=== PATIENT | male | born 1980 | race Caucasian/White ===

== ENCOUNTER 2022-10-18 14:56 | Inpatient (IN) | payer MEDICAID ==
[~2022-10-18] VITALS: Ht 182.9 cm; Wt 136.5 kg
[2022-10-18] MEDS ORDERED: ondansetron/PF 4mg/2ml inj IV ONE (15:25)
[2022-10-18] MEDS ORDERED: piperacillin/tazo 3.375gm/50ml 50 ML IV ONE (15:25)
[2022-10-18 16:05] LABS: BASOPHILS % (AUTO) 0.2 % (0-1); EOSINOPHILS # (AUTO) 0.1 X10'3 (0-0.9); EOSINOPHILS % (AUTO) 1.4 % (0-6); HEMATOCRIT 47.7 % (42.0-52.0); LYMPHOCYTES # (AUTO) 1.5 X10'3 (1.1-4.8); LYMPHOCYTES % (AUTO) 16.7 % (21-51); MEAN CORPUSCULAR HEMOGLOBIN 29.4 PG (27.0-31.0); MEAN CORPUSCULAR HGB CONC 33.6 g/dL (33.0-36.5); MEAN CORPUSCULAR VOLUME 87.7 FL (78-98); MEAN PLATELET VOLUME 8.3 FL (7.4-10.4); MONOCYTES # (AUTO) 1.2 X10'3 (0-0.9); NEUTROPHILS # (AUTO) 6.1 X10'3 (1.8-7.7); NEUTROPHILS % (AUTO) 68.7 % (42-75); PLATELET COUNT 334 X10'3 (140-440); RED BLOOD COUNT 5.44 X10'6 (4.70-6.10); RED CELL DISTRIBUTION WIDTH 15.1 % (11.5-14.5); WHITE BLOOD COUNT 8.9 X10'3 (4.5-11.0)
[2022-10-18] MEDS: morphine 4 MG/ML inj SYRINge IV PRN ×2 (16:16→19:05)
[2022-10-18] MEDS: ringers solution, lacted 1,000 ML IV SCH ×2 (16:47→22:20)
[2022-10-18 17:02] LABS: ALANINE AMINOTRANSFERASE 24 U/L (12-78); ALBUMIN 3.6 G/DL (3.4-5.0); ALBUMIN/GLOBULIN RATIO 0.9 (1.1-1.5); ALKALINE PHOSPHATASE 90 IU/L (46-116); ANION GAP 10 (8-16); ASPARTATE AMINO TRANSFERASE 24 U/L (10-37); BILIRUBIN,TOTAL 1.5 MG/DL (0.1-1.0); BLOOD UREA NITROGEN 14 MG/DL (7-18); BUN/CREATININE RATIO 13.6 (5.4-32.0); CALCIUM 9.3 MG/DL (8.5-10.1); CHLORIDE 101 MMOL/L (99-107); CREATININE 1.03 MG/DL (0.60-1.10); GLUCOSE 108 MG/DL (70-104); LIPASE 56 U/L (73-393); SODIUM 136 MMOL/L (135-145); TOTAL CARBON DIOXIDE 25.1 MMOL/L (24-32); TOTAL PROTEIN 7.4 G/DL (6.4-8.2); eGFR 79 ML/MIN
[2022-10-18 17:10] LABS: POTASSIUM 4.5 MMOL/L (3.5-5.1)
[2022-10-18] MEDS ORDERED: mag hydrox/Alum hydrox/simeth 30ml oral suspension PO PRN (17:30)
[2022-10-18] MEDS ORDERED: magnesium Cl slow-release 64mg tablet PO PRN (17:30)
[2022-10-18] MEDS ORDERED: potassium Cl 20 mEq SR tablet PO PRN ×2 (17:30)
[2022-10-18] MEDS ORDERED: PERFLUTREN PROTEIN-A MICROSPHR (Optison) 0.22 MG/ML 3ML VIAL IV ONE (17:30)
[2022-10-18] MEDS ORDERED: potassium Cl 40MEQ/1/2NS 520ml 520 ML IV PRN (17:30)
[2022-10-18] MEDS ORDERED: HYDROmorphone inj. 0.5 MG/0.5 ML DISP.SYRIN IV PRN (17:30)
[2022-10-18] MEDS ORDERED: acetaminophen 325mg tablet PO PRN (17:30)
[2022-10-18] MEDS ORDERED: magnesium 4gm in 100ml NS 100 ML IV PRN (17:30)
[2022-10-18] MEDS ORDERED: HYDROmorphone/PF 0.2 MG/ML SYRINGE IV PRN (17:30)
[2022-10-18] MEDS: normal saline 1000ml 1,000 ML IV SCH (17:44)
[2022-10-18] MEDS: ondansetron/PF 4mg/2ml inj IV PRN (18:45)
[2022-10-18] MEDS ORDERED: LOSA25TA41 PO (19:22)
[2022-10-18] MEDS ORDERED: POTA10CA45 PO (19:22)
[2022-10-18] MEDS ORDERED: NAPR-1144 PO (19:22)
[2022-10-18] MEDS ORDERED: CARV3.122 PO (19:22)
[2022-10-18] MEDS ORDERED: FURO40TA4 PO (19:22)
[2022-10-18] MEDS: K and/or MAG REPLACEMENT MC SCH (20:00)
[2022-10-18] MEDS ORDERED: midazolam 100mg in NS 100ml 100 ML IV PRN (20:15)
[2022-10-18] MEDS ORDERED: ondansetron/PF 4mg/2ml inj IV PRN (20:15)
[2022-10-18] MEDS ORDERED: ringers solution, lacted 1,000 ML IV SCH (20:15)
[2022-10-18] MEDS: NORepinephrine 8mg/ 250ml NS 250 ML IV SCH (20:15)
[2022-10-18 20:33] VITALS: BP 118/98
[2022-10-18] MEDS ORDERED: NORepinephrine 8 MG in NS 250 ML BAG (32 mcg/ml) IV ONE (21:17)
[2022-10-18] MEDS ORDERED: sevoflurane 250ml liquid IH ONE (21:17)
--- NOTE | 2022-10-18 21:19 | NUR ---
Pt came in from ED, Dr Naik instructed me and charge nurse that he was going to take patient to OR in 20 minutes, pt left floor at [id number]
[2022-10-18] MEDS ORDERED: MIDAZolam 1mg/ml 10ml vial ONE (21:28)
[2022-10-18] MEDS ORDERED: fentaNYL /PF 50mcg/ml 5ml ampule ONE (21:31)
[2022-10-18] MEDS ORDERED: etomidate 2mg/ml inj. ONE (22:13)
[2022-10-18] MEDS ORDERED: rocuronium 10mg/ml inj IV ONE ×3 (22:13)
[2022-10-18] MEDS ORDERED: albumin (Human) 5% 250ml 250 ML IV ONE ×2 (22:13)
[2022-10-18] MEDS ORDERED: naloxone 0.4 mg/ml inj IV PRN (23:50)
[2022-10-18 23:59] VITALS: BP 133/77
[2022-10-19] VITALS (41 sets, daily range): BP systolic 90–166; BP diastolic 46–95
[2022-10-19] MEDS: FENTANYL-0.9 % NACL/PF 100 ML IV SCH ×4 (00:09→22:05)
[2022-10-19 00:16] LABS: ABG BASE EXCESS -3.5 mmol/L (-2.0-2.0); ABG HCO3 22.7 mmol/L (22.0-26.0); ABG OXYGEN SATURATION 98.9 % (94-97); ABG PCO2 (T) 46.7 mmHg (35.0-48.0); ABG PO2 (T) 149.3 mmHg (75.0-100.0); FMetHb 0.6 % (0.0-1.5); FO2Hb 97.3 % (94-97); PEEP 5 cm H2O; RESPIRATORY RATE 12 b/min; TIDAL VOLUME 700 mL; TOTAL HEMOGLOBIN 16.8 G/dl (14.0-17.9)
[2022-10-19] MEDS: ringers solution, lacted 1,000 ML IV SCH ×3 (00:40→11:40)
[2022-10-19] MEDS ORDERED: magnesium 2GM in 50ml NS 50 ML IV PRN (02:15)
[2022-10-19] MEDS ORDERED: magnesium 4gm in 100ml NS 100 ML IV PRN (02:15)
[2022-10-19] MEDS ORDERED: potassium Cl 20mEq/100mL bag 100 ML IV PRN (02:15)
[2022-10-19 03:18] LABS: BASOPHILS % (AUTO) 0.2 % (0-1); EOSINOPHILS % (AUTO) 0.1 % (0-6); HEMATOCRIT 45.4 % (42.0-52.0); HEMOGLOBIN 15.3 g/dl (14.0-17.9); LYMPHOCYTES # (AUTO) 0.3 X10'3 (1.1-4.8); MEAN CORPUSCULAR HEMOGLOBIN 29.7 PG (27.0-31.0); MEAN CORPUSCULAR HGB CONC 33.8 g/dL (33.0-36.5); MEAN PLATELET VOLUME 8.1 FL (7.4-10.4); MONOCYTES # (AUTO) 0.2 X10'3 (0-0.9); MONOCYTES % (AUTO) 13.4 % (2-12); NEUTROPHILS # (AUTO) 1.2 X10'3 (1.8-7.7); NEUTROPHILS % (AUTO) 70.3 % (42-75); PLATELET COUNT 259 X10'3 (140-440); RED BLOOD COUNT 5.16 X10'6 (4.70-6.10); RED CELL DISTRIBUTION WIDTH 15.2 % (11.5-14.5); WHITE BLOOD COUNT 1.7 X10'3 (4.5-11.0)
[2022-10-19] MEDS: normal saline 1000ml 1,000 ML IV SCH ×3 (03:30→23:36)
[2022-10-19 03:32] LABS: ALANINE AMINOTRANSFERASE 19 U/L (12-78); ALBUMIN 2.9 G/DL (3.4-5.0); ALKALINE PHOSPHATASE 63 IU/L (46-116); ANION GAP 8 (8-16); ASPARTATE AMINO TRANSFERASE 20 U/L (10-37); BILIRUBIN,TOTAL 2.3 MG/DL (0.1-1.0); BLOOD UREA NITROGEN 17 MG/DL (7-18); BUN/CREATININE RATIO 15.3 (5.4-32.0); CALCIUM 8.1 MG/DL (8.5-10.1); CHLORIDE 106 MMOL/L (99-107); CREATININE 1.11 MG/DL (0.60-1.10); GLUCOSE 127 MG/DL (70-104); MAGNESIUM 1.6 MG/DL (1.5-2.4); SODIUM 138 MMOL/L (135-145); TOTAL CARBON DIOXIDE 23.9 MMOL/L (24-32); TOTAL PROTEIN 5.9 G/DL (6.4-8.2); eGFR 72 ML/MIN
[2022-10-19] MEDS: piperacillin/tazo 4.5gm/100ml 100 ML IV SCH ×5 (03:41→23:36)
[2022-10-19 04:08] LABS: PLATELET ESTIMATE NORMAL; TOTAL CELLS COUNTED 100
[2022-10-19] MEDS: NORepinephrine 8mg/ 250ml NS 250 ML IV SCH ×3 (06:31→17:42)
[2022-10-19] MEDS: K and/or MAG REPLACEMENT MC SCH ×2 (08:00→19:18)
[2022-10-19 08:18] LABS: CLARITY,URINE CLOUDY (Clear); COLOR,URINE ORANGE (Yellow); GLUCOSE, URINE NEGATIVE (Neg); KETONES,URINE TRACE mg/dl (Neg); LEUKOCYTE ESTERASE ,URINE NEGATIVE (Neg); OCCULT BLOOD,URINE TRACE-INTACT (Neg); PROTEIN,URINE 100 mg/dl (Neg)
[2022-10-19 08:39] LABS: UA COLLECTION TYPE FOLEY CATH
[2022-10-19 08:41] LABS: NITRITES, URINE NEGATIVE (Neg)
[2022-10-19 08:42] LABS: RBC,URINE 0-2 /HPF (0-2); WBC,URINE 0-4 /HPF (0-4)
[2022-10-19 08:43] LABS: AMORPHOUS URATES 4+; BACTERIA,URINE FEW /HPF (Neg); SQUAMOUS EPITHELIAL CELL,UR FEW /LPF (FEW)
[2022-10-19 08:44] LABS: TRANSITIONAL EPI CELLS,URINE FEW /HPF
[2022-10-19 08:59] LABS: URINE AMPHETAMINE SCREEN POSITIVE (Neg); URINE BARBITUATE SCREEN NEGATIVE (Neg); URINE BENZODIAZEPINES SCREEN POSITIVE (Neg); URINE CANNABINOID SCREEN POSITIVE (Neg); URINE COCAINE SCREEN NEGATIVE (Neg); URINE METHADONE SCREEN NEGATIVE (Neg); URINE OPIATE SCREEN POSITIVE (Neg); URINE PHENCYCLIDINE SCREEN NEGATIVE (Neg)
[2022-10-19] MEDS: propofol 1000mg/100ml bottle 100 ML IV SCH ×2 (10:20→19:28)
--- NOTE | 2022-10-19 10:30 | NUR ---
Dr. Iyer aware of decreased urine output. Continue normal saline at 100ml/h. Start Protonix IV.
[2022-10-19] MEDS: pantoprazole 40MG/NS 100ML BAG 100 ML IV SCH (10:32)
--- NOTE | 2022-10-19 12:05 | NUR ---
Initial: Pt admit for SBO with possible ischemic bowel and sepsis. Per surgeon note pt with SBO and peritonitis. Pt remains intubated POD #1 s/p exploratory laparotomy and removal of small bowel bezoar. Per RN pt possibly to go back to OR. An NGT is in place for LIS, documented with 100 mL output today. Propofol to begin today per MD at [facility]. Will continue to follow closely and make nutrition support recs as appropriate pending Propofol rate and desired route of nutrition (EN via NGT if able to utilize gut, otherwise PN). Recommendations: 1) Initiate nutrition support as medically indicated. EN IF able to utilize gut, otherwise PN 2) Bowel care per physician 3) Daily scaled weights with imitation of nutrition Addendum: 10/19/22 at [address] Amended: Links added.
--- NOTE | 2022-10-19 13:22 | NUR ---
Dr. Naik rounding on patient. Orders to keep NPO until passing gas. Continue holding VTE prophylaxis. Plans to NOT go back to OR. Daily dressing changes. Okay to D/C packing tomorrow 10/20/22. MD aware of decreased urine output; continue to monitor. Also, orders to check daily lactic acid; hold off on weaning to extubate until at least 24h post-surgery.
--- NOTE | 2022-10-19 18:14 | NUR ---
Problems reprioritized. Patient report given, questions answered & plan of care reviewed with Venu JOSEPH.
--- NOTE | 2022-10-19 18:15 | NUR ---
Patient in room CICU 2015. I have received report from Javi and had the opportunity to ask questions and assume patient care.
[2022-10-19 19:37] LABS: TRIGLYCERIDES 55 MG/DL (20-135)
[2022-10-20] VITALS (29 sets, daily range): BP systolic 92–121; BP diastolic 47–75
[2022-10-20] MEDS: propofol 1000mg/100ml bottle 100 ML IV SCH (00:49)
[2022-10-20 02:21] LABS: BASOPHILS % (AUTO) 0 % (0-1); EOSINOPHILS % (AUTO) 0.1 % (0-6); LYMPHOCYTES # (AUTO) 1.4 X10'3 (1.1-4.8); LYMPHOCYTES % (AUTO) 11.5 % (21-51); MEAN CORPUSCULAR HEMOGLOBIN 29.2 PG (27.0-31.0); MEAN CORPUSCULAR HGB CONC 32.6 g/dL (33.0-36.5); MEAN CORPUSCULAR VOLUME 89.6 FL (78-98); MEAN PLATELET VOLUME 8.3 FL (7.4-10.4); MONOCYTES # (AUTO) 1.2 X10'3 (0-0.9); MONOCYTES % (AUTO) 9.8 % (2-12); NEUTROPHILS # (AUTO) 9.8 X10'3 (1.8-7.7); NEUTROPHILS % (AUTO) 78.6 % (42-75); PLATELET COUNT 287 X10'3 (140-440); RED CELL DISTRIBUTION WIDTH 15.7 % (11.5-14.5); WHITE BLOOD COUNT 12.5 X10'3 (4.5-11.0)
[2022-10-20 02:37] LABS: ALANINE AMINOTRANSFERASE 17 U/L (12-78); ALBUMIN 2.4 G/DL (3.4-5.0); ALBUMIN/GLOBULIN RATIO 0.7 (1.1-1.5); ALKALINE PHOSPHATASE 59 IU/L (46-116); ANION GAP 6 (8-16); ASPARTATE AMINO TRANSFERASE 16 U/L (10-37); BLOOD UREA NITROGEN 28 MG/DL (7-18); BUN/CREATININE RATIO 18.5 (5.4-32.0); CALCIUM 8.3 MG/DL (8.5-10.1); CHLORIDE 107 MMOL/L (99-107); CREATININE 1.51 MG/DL (0.60-1.10); GLUCOSE 117 MG/DL (70-104); MAGNESIUM 1.9 MG/DL (1.5-2.4); POTASSIUM 4.2 MMOL/L (3.5-5.1); SODIUM 139 MMOL/L (135-145); TOTAL CARBON DIOXIDE 25.7 MMOL/L (24-32); TOTAL PROTEIN 5.9 G/DL (6.4-8.2); eGFR 51 ML/MIN
[2022-10-20] MEDS: FENTANYL-0.9 % NACL/PF 100 ML IV SCH (03:44)
[2022-10-20 04:27] LABS: ABG BASE EXCESS -4.6 mmol/L (-2.0-2.0); ABG HCO3 22.2 mmol/L (22.0-26.0); ABG OXYGEN SATURATION 97.4 % (94-97); ABG PCO2 (T) 49.2 mmHg (35.0-48.0); ABG PO2 (T) 102.9 mmHg (75.0-100.0); FCOHb 0.7 % (0.0-3.9); FMetHb 0.4 % (0.0-1.5); FO2Hb 96.3 % (94-97); PATIENT TEMPERATURE 37.9; PEEP 5 cm H2O; RESPIRATORY RATE 12 b/min; TIDAL VOLUME 600 mL; TOTAL HEMOGLOBIN 15.2 G/dl (14.0-17.9)
--- NOTE | 2022-10-20 06:15 | NUR ---
Problems reprioritized. Patient report given, questions answered & plan of care reviewed with Javi.
--- NOTE | 2022-10-20 06:30 | NUR ---
Patient in room CICU 2014. I have received report from Venu and had the opportunity to ask questions and assume patient care.
[2022-10-20] MEDS: piperacillin/tazo 4.5gm/100ml 100 ML IV SCH ×3 (07:29→22:41)
[2022-10-20] MEDS: pantoprazole 40MG/NS 100ML BAG 100 ML IV SCH (07:29)
[2022-10-20] MEDS: K and/or MAG REPLACEMENT MC SCH ×2 (08:00→20:00)
[2022-10-20] MEDS: normal saline 1000ml 1,000 ML IV SCH (09:33)
[2022-10-20] MEDS: NORepinephrine 8mg/ 250ml NS 250 ML IV SCH ×2 (13:19→20:05)
[2022-10-20] MEDS ORDERED: albumin (human) 25% 100 ML IV solution IV ONE (14:10)
[2022-10-20] MEDS ORDERED: albumin (human) 25% 100ml IV 300 ML IV ONE (14:15)
[2022-10-20] MEDS: albumin (Human) 5% 250ml 250 ML IV SCH ×4 (14:37→22:36)
[2022-10-20] MEDS ORDERED: albumin (Human) 5% 250ml 250 ML IV SCH (15:00)
--- NOTE | 2022-10-20 17:15 | NUR ---
Dr. Gumaro lal; patient reports he is passing gas. Okay per to clamp NG tube and check residuals after 4 hours; if <150ml, okay to D/C NG tube. Hold off on transfer today. Addendum: 10/20/22 at 1753 by Javi Alvarado RN Okay for ice-chips and popsicles; hold off on clears now.
--- NOTE | 2022-10-20 18:05 | NUR ---
Problems reprioritized. Patient report given, questions answered & plan of care reviewed with Venu JOSEPH.
--- NOTE | 2022-10-20 18:15 | NUR ---
Patient in room CICU 2015. I have received report from Javi and had the opportunity to ask questions and assume patient care.
--- NOTE | 2022-10-20 22:10 | NUR ---
NGT was clamped for 4 hours. During that time pt had some ice chips and popsicle and tolerated well. After 4 hours residuals checked, <25mls of residual so NGT DCd per order.
[2022-10-20] MEDS: heparin, porcine 5000 units/ml vial SQ SCH (22:41)
[2022-10-21] VITALS (18 sets, daily range): BP systolic 90–132; BP diastolic 55–99
[2022-10-21] MEDS: albumin (Human) 5% 250ml 250 ML IV SCH ×3 (01:52→11:15)
[2022-10-21 02:31] LABS: BASOPHILS % (AUTO) 0.1 % (0-1); EOSINOPHILS # (AUTO) 0.1 X10'3 (0-0.9); EOSINOPHILS % (AUTO) 0.6 % (0-6); HEMATOCRIT 40.5 % (42.0-52.0); HEMOGLOBIN 12.9 g/dl (14.0-17.9); LYMPHOCYTES # (AUTO) 1.7 X10'3 (1.1-4.8); LYMPHOCYTES % (AUTO) 16.5 % (21-51); MEAN CORPUSCULAR HEMOGLOBIN 28.9 PG (27.0-31.0); MEAN CORPUSCULAR HGB CONC 31.9 g/dL (33.0-36.5); MEAN CORPUSCULAR VOLUME 90.6 FL (78-98); MEAN PLATELET VOLUME 8.9 FL (7.4-10.4); MONOCYTES # (AUTO) 1.2 X10'3 (0-0.9); NEUTROPHILS # (AUTO) 7.6 X10'3 (1.8-7.7); NEUTROPHILS % (AUTO) 71.8 % (42-75); PLATELET COUNT 250 X10'3 (140-440); RED BLOOD COUNT 4.47 X10'6 (4.70-6.10); WHITE BLOOD COUNT 10.6 X10'3 (4.5-11.0)
[2022-10-21 02:44] LABS: ALANINE AMINOTRANSFERASE 18 U/L (12-78); ALBUMIN 3.5 G/DL (3.4-5.0); ALBUMIN/GLOBULIN RATIO 1.1 (1.1-1.5); ALKALINE PHOSPHATASE 62 IU/L (46-116); ANION GAP 7 (8-16); ASPARTATE AMINO TRANSFERASE 18 U/L (10-37); BILIRUBIN,TOTAL 1.4 MG/DL (0.1-1.0); BLOOD UREA NITROGEN 23 MG/DL (7-18); BUN/CREATININE RATIO 23.2 (5.4-32.0); CALCIUM 8.9 MG/DL (8.5-10.1); CHLORIDE 108 MMOL/L (99-107); CREATININE 0.99 MG/DL (0.60-1.10); GLUCOSE 122 MG/DL (70-104); MAGNESIUM 2.5 MG/DL (1.5-2.4); POTASSIUM 4.4 MMOL/L (3.5-5.1); SODIUM 142 MMOL/L (135-145); TOTAL CARBON DIOXIDE 26.8 MMOL/L (24-32); TOTAL PROTEIN 6.7 G/DL (6.4-8.2); eGFR 83 ML/MIN
[2022-10-21] MEDS: piperacillin/tazo 4.5gm/100ml 100 ML IV SCH ×2 (07:46→17:08)
[2022-10-21] MEDS: heparin, porcine 5000 units/ml vial SQ SCH ×2 (07:46→17:06)
[2022-10-21] MEDS: pantoprazole 40MG/NS 100ML BAG 100 ML IV SCH (07:46)
[2022-10-21] MEDS: K and/or MAG REPLACEMENT MC SCH ×2 (08:00→20:00)
[2022-10-21] MEDS: NORepinephrine 8mg/ 250ml NS 250 ML IV SCH (09:51)
--- NOTE | 2022-10-21 15:16 | NUR ---
Problems reprioritized. Patient report given, questions answered & plan of care reviewed with Luiz JOSEPH.
--- NOTE | 2022-10-21 15:16 | NUR ---
Patient in room CICU 2014. I have received report from Javi Byrnes [facility] and had the opportunity to ask questions and assume patient care.
[2022-10-21] MEDS: HYDROmorphone 1 mg/ml syringe IV PRN (17:09)
--- NOTE | 2022-10-21 18:13 | NUR ---
Problems reprioritized. Patient report given, questions answered & plan of care reviewed with PRUDENCE RN.
--- NOTE | 2022-10-21 19:04 | NUR ---
Patient in room [facility] 344. I have received report from KRYSTYNA JOSEPH and had the opportunity to ask questions and assume patient care.
[2022-10-21] MEDS ORDERED: acetaminophen 325mg tablet PO PRN ×2 (21:45)
[2022-10-21] MEDS ORDERED: HYDROcodone/acetaminophen 5mg/325mg tablet PO PRN (21:45)
[2022-10-21] MEDS: HYDROcodone/acetaminophen 10/325mg tab PO PRN (21:53)
[2022-10-22] MEDS: heparin, porcine 5000 units/ml vial SQ SCH ×4 (00:02→23:36)
[2022-10-22] MEDS: piperacillin/tazo 4.5gm/100ml 100 ML IV SCH ×4 (00:03→23:36)
[2022-10-22] MEDS: HYDROmorphone 1 mg/ml syringe IV PRN ×3 (00:06→22:48)
[2022-10-22 04:14] LABS: BASOPHILS % (AUTO) 0.1 % (0-1); EOSINOPHILS # (AUTO) 0.2 X10'3 (0-0.9); EOSINOPHILS % (AUTO) 1.3 % (0-6); HEMATOCRIT 42.1 % (42.0-52.0); HEMOGLOBIN 13.5 g/dl (14.0-17.9); LYMPHOCYTES % (AUTO) 20.3 % (21-51); MEAN CORPUSCULAR HEMOGLOBIN 28.7 PG (27.0-31.0); MEAN CORPUSCULAR HGB CONC 32.2 g/dL (33.0-36.5); MEAN CORPUSCULAR VOLUME 89.2 FL (78-98); MEAN PLATELET VOLUME 8.4 FL (7.4-10.4); MONOCYTES # (AUTO) 1.7 X10'3 (0-0.9); MONOCYTES % (AUTO) 11.7 % (2-12); NEUTROPHILS # (AUTO) 9.7 X10'3 (1.8-7.7); NEUTROPHILS % (AUTO) 66.6 % (42-75); PLATELET COUNT 265 X10'3 (140-440); RED BLOOD COUNT 4.72 X10'6 (4.70-6.10); RED CELL DISTRIBUTION WIDTH 15.6 % (11.5-14.5); WHITE BLOOD COUNT 14.6 X10'3 (4.5-11.0)
[2022-10-22 04:54] LABS: ALANINE AMINOTRANSFERASE 49 U/L (12-78); ALBUMIN 3.3 G/DL (3.4-5.0); ALKALINE PHOSPHATASE 76 IU/L (46-116); ANION GAP 8 (8-16); ASPARTATE AMINO TRANSFERASE 52 U/L (10-37); BILIRUBIN,TOTAL 1.1 MG/DL (0.1-1.0); BLOOD UREA NITROGEN 19 MG/DL (7-18); BUN/CREATININE RATIO 20.9 (5.4-32.0); CALCIUM 8.6 MG/DL (8.5-10.1); CHLORIDE 104 MMOL/L (99-107); CREATININE 0.91 MG/DL (0.60-1.10); GLUCOSE 116 MG/DL (70-104); MAGNESIUM 2.2 MG/DL (1.5-2.4); POTASSIUM 3.9 MMOL/L (3.5-5.1); SODIUM 137 MMOL/L (135-145); TOTAL CARBON DIOXIDE 25.1 MMOL/L (24-32); TOTAL PROTEIN 6.5 G/DL (6.4-8.2); eGFR > 90 ML/MIN
--- NOTE | 2022-10-22 06:08 | NUR ---
Problems reprioritized. Patient report given, questions answered & plan of care reviewed with MICHAEL RN.
[2022-10-22 06:30] VITALS: BP 116/95
[2022-10-22] MEDS: pantoprazole 40MG/NS 100ML BAG 100 ML IV SCH (07:51)
[2022-10-22] MEDS: HYDROcodone/acetaminophen 10/325mg tab PO PRN ×2 (07:55→16:49)
[2022-10-22] MEDS: K and/or MAG REPLACEMENT MC SCH ×2 (08:00→20:00)
[2022-10-22 09:14] LABS: TRIGLYCERIDES 104 MG/DL (20-135)
[2022-10-22 12:42] VITALS: BP 131/92
--- NOTE | 2022-10-22 14:41 | NUR ---
F/u 10/22: Pt extubated 2/3 advanced to clear liquids diet last night PO 75-100% initial meals. LBM 10/14 w/ no bowel regimen at this time. Noted pt passing gas per MD note today. TERA d/w RN regarding routine bowel regimen if surgeon agreeable. If pt to remain on restrictive clears without return of bowel function would benefit from TPN given now day 5 little/no nutrition intake this admit. Will monitor for further nutrition intervention needs. Recommendations: 1) Continue clear liquids diet per MD; advance as medically indicated to low-residue 2) IF continues on restrictive clears without GI function return; consider TPN given currently 5 days little to no nutrition 3) Bowel care per physician; LBM 10/14 4) Daily scaled weights Addendum: 10/22/22 at [address] Amended: Links added.
--- NOTE | 2022-10-22 16:08 | NUR ---
PAGER ID: [phone] MESSAGE: [id number] Re: [id number] Cl[address] [place] Patient is requesting a nicotine patch and is about a half a pack a day smoker. Would you like to add the 14mg patch for him? Thanks
[2022-10-22] MEDS ORDERED: nicotine 14mg patch - 24hr TD ONE (16:30)
[2022-10-22 18:00] VITALS: BP 131/104
--- NOTE | 2022-10-22 18:30 | NUR ---
Problems reprioritized. Patient report given, questions answered & plan of care reviewed with Cassi JOSEPH.
[2022-10-22 22:08] VITALS: BP 129/102
[2022-10-23] MEDS: HYDROcodone/acetaminophen 10/325mg tab PO PRN ×2 (04:28→19:33)
[2022-10-23 06:04] LABS: ALANINE AMINOTRANSFERASE 77 U/L (12-78); ALBUMIN 2.9 G/DL (3.4-5.0); ALBUMIN/GLOBULIN RATIO 0.9 (1.1-1.5); ALKALINE PHOSPHATASE 79 IU/L (46-116); ANION GAP 10 (8-16); ASPARTATE AMINO TRANSFERASE 56 U/L (10-37); BILIRUBIN,TOTAL 1.6 MG/DL (0.1-1.0); BLOOD UREA NITROGEN 14 MG/DL (7-18); BUN/CREATININE RATIO 17.3 (5.4-32.0); CALCIUM 8.6 MG/DL (8.5-10.1); CHLORIDE 103 MMOL/L (99-107); CREATININE 0.81 MG/DL (0.60-1.10); GLUCOSE 99 MG/DL (70-104); POTASSIUM 3.7 MMOL/L (3.5-5.1); SODIUM 136 MMOL/L (135-145); eGFR > 90 ML/MIN
--- NOTE | 2022-10-23 06:07 | NUR ---
Problems reprioritized. Patient report given, questions answered & plan of care reviewed with OPAL RODRIGUEZ.
[2022-10-23 06:14] LABS: BASOPHILS % (AUTO) 0.2 % (0-1); EOSINOPHILS # (AUTO) 0.2 X10'3 (0-0.9); EOSINOPHILS % (AUTO) 1.5 % (0-6); HEMATOCRIT 44.9 % (42.0-52.0); HEMOGLOBIN 14.7 g/dl (14.0-17.9); LYMPHOCYTES # (AUTO) 2.4 X10'3 (1.1-4.8); LYMPHOCYTES % (AUTO) 17.1 % (21-51); MEAN CORPUSCULAR HGB CONC 32.7 g/dL (33.0-36.5); MEAN CORPUSCULAR VOLUME 88.5 FL (78-98); MEAN PLATELET VOLUME 8.7 FL (7.4-10.4); MONOCYTES # (AUTO) 2.2 X10'3 (0-0.9); MONOCYTES % (AUTO) 15.7 % (2-12); NEUTROPHILS # (AUTO) 9.4 X10'3 (1.8-7.7); NEUTROPHILS % (AUTO) 65.5 % (42-75); PLATELET COUNT 268 X10'3 (140-440); RED BLOOD COUNT 5.07 X10'6 (4.70-6.10); RED CELL DISTRIBUTION WIDTH 15.4 % (11.5-14.5); WHITE BLOOD COUNT 14.3 X10'3 (4.5-11.0)
[2022-10-23 06:20] VITALS: BP 142/103
--- NOTE | 2022-10-23 06:23 | NUR ---
Patient in room [facility] 344. I have received report from Cassi JOSEPH and had the opportunity to ask questions and assume patient care.
[2022-10-23 07:22] LABS: NUCLEATED RED BLOOD CELLS 1 /100WBC (0-0); TOTAL CELLS COUNTED 100
[2022-10-23 07:23] LABS: LARGE PLATELETS FEW
[2022-10-23 07:24] LABS: ANISOCYTOSIS 1+; PLATELET ESTIMATE NORMAL
[2022-10-23] MEDS: pantoprazole 40MG/NS 100ML BAG 100 ML IV SCH (07:37)
[2022-10-23] MEDS: nicotine 14mg patch - 24hr TD SCH (07:37)
[2022-10-23] MEDS: heparin, porcine 5000 units/ml vial SQ SCH ×3 (07:37→23:31)
[2022-10-23] MEDS: HYDROmorphone 1 mg/ml syringe IV PRN ×3 (07:47→20:18)
[2022-10-23] MEDS: K and/or MAG REPLACEMENT MC SCH ×2 (08:00→20:00)
[2022-10-23] MEDS: piperacillin/tazo 4.5gm/100ml 100 ML IV SCH ×3 (08:29→23:31)
[2022-10-23 11:47] VITALS: BP 129/93
[2022-10-23] MEDS: furosemide 40mg tablet PO SCH (12:08)
[2022-10-23 18:00] VITALS: BP 129/75
--- NOTE | 2022-10-23 18:08 | NUR ---
Problems reprioritized. Patient report given, questions answered & plan of care reviewed with Cassi JOSEPH.
[2022-10-23] MEDS: carvedilol 6.25mg tablet PO SCH (19:32)
[2022-10-23 19:35] VITALS: BP 145/95
[2022-10-23 22:00] VITALS: BP 129/94
[2022-10-23 22:45] VITALS: BP 105/87
--- NOTE | 2022-10-23 22:55 | NUR ---
pt had 11 beats of vtach. bp 105/87 hr103 96% rr16. asymptomatic. Dr. Lo notified. no order received.
[2022-10-24] MEDS: HYDROcodone/acetaminophen 10/325mg tab PO PRN ×4 (02:12→22:30)
[2022-10-24] MEDS: HYDROmorphone 1 mg/ml syringe IV PRN ×2 (03:03→08:02)
--- NOTE | 2022-10-24 06:13 | NUR ---
Problems reprioritized. Patient report given, questions answered & plan of care reviewed with glenn Sequeira.
--- NOTE | 2022-10-24 06:39 | NUR ---
Patient in room [facility]. I have received report from OPAL Ye and had the opportunity to ask questions and assume patient care.
[2022-10-24 06:59] VITALS: BP 114/81
[2022-10-24] MEDS: carvedilol 6.25mg tablet PO SCH (07:59)
[2022-10-24] MEDS: furosemide 40mg tablet PO SCH (07:59)
[2022-10-24] MEDS: K and/or MAG REPLACEMENT MC SCH ×2 (08:00→20:00)
[2022-10-24] MEDS: pantoprazole 40MG/NS 100ML BAG 100 ML IV SCH (08:00)
[2022-10-24] MEDS ORDERED: lisinopril 5mg tablet PO SCH (08:00)
[2022-10-24] MEDS: spironolactone 25 MG tablet PO SCH (08:00)
[2022-10-24] MEDS: heparin, porcine 5000 units/ml vial SQ SCH ×3 (08:01→23:56)
[2022-10-24] MEDS: nicotine 14mg patch - 24hr TD SCH (08:02)
[2022-10-24] MEDS: piperacillin/tazo 4.5gm/100ml 100 ML IV SCH (08:14)
[2022-10-24 11:48] VITALS: BP 113/76
--- NOTE | 2022-10-24 12:43 | NUR ---
Dr. Naik in to see patient and assessed patient's surgical wound and states open area is normal due to previous packing.
[2022-10-24] MEDS: ondansetron/PF 4mg/2ml inj IV PRN (13:10)
--- NOTE | 2022-10-24 15:31 | NUR ---
Faustino from engineering in to assess patient's electric heating pad and stated ok to have. No frays in the cords and has auto-shutoff. Addendum: 10/24/22 at 1532 by Tricia Galvan RN incorrect patient.
[2022-10-24] MEDS: piperacillin/tazo 3.375gm/50ml 50 ML IV SCH ×2 (16:16→23:45)
[2022-10-24 18:00] VITALS: BP 95/71
[2022-10-24] MEDS: carVEDilol 3.125mg tablet PO SCH (20:00)
[2022-10-24 20:29] VITALS: BP 95/63
[2022-10-24 23:00] VITALS: BP 106/68
[2022-10-25] MEDS: HYDROcodone/acetaminophen 10/325mg tab PO PRN ×4 (04:38→22:29)
--- NOTE | 2022-10-25 06:17 | NUR ---
Patient in room [facility]. I have received report from OPAL Ye and had the opportunity to ask questions and assume patient care.
[2022-10-25 06:30] VITALS: BP 110/63
--- NOTE | 2022-10-25 06:49 | NUR ---
Problems reprioritized. Patient report given, questions answered & plan of care reviewed with glenn Sequeira.
[2022-10-25] MEDS: heparin, porcine 5000 units/ml vial SQ SCH ×3 (07:02→23:45)
[2022-10-25] MEDS: nicotine 14mg patch - 24hr TD SCH (07:03)
[2022-10-25] MEDS: pantoprazole 40MG/NS 100ML BAG 100 ML IV SCH (07:03)
[2022-10-25] MEDS: carVEDilol 3.125mg tablet PO SCH ×3 (07:05→19:52)
[2022-10-25] MEDS: furosemide 40mg tablet PO SCH (07:05)
[2022-10-25] MEDS: piperacillin/tazo 3.375gm/50ml 50 ML IV SCH ×3 (07:10→23:45)
[2022-10-25] MEDS: K and/or MAG REPLACEMENT MC SCH ×2 (08:00→19:59)
--- NOTE | 2022-10-25 08:29 | NUR ---
Removed border gauze dressing to assess surgical wound and patient began to touch wound. Educated and reminded patient to do scratch at or touch surgical wounds. Patient states he has had a habit of scratching self and "the night nurse told me not to stick m fingers in my wounds too." Redressed wound with border gauze.
--- NOTE | 2022-10-25 08:36 | NUR ---
Dr. Vance in to see patient and notified Dr. Vance of patient's 5 beat run of vtach. Dr. Vance also notified that patient's coreg was held due to heart rate of being 55. Dr. Vance okayed for coreg to be given with hr at 55 being "fine."
[2022-10-25 08:45] VITALS: BP 104/75
[2022-10-25] MEDS: spironolactone 25 MG tablet PO SCH (08:46)
[2022-10-25 09:50] LABS: MAGNESIUM 1.8 MG/DL (1.5-2.4); PHOSPHORUS 4.1 MG/DL (2.3-4.5); POTASSIUM 3.7 MMOL/L (3.5-5.1)
--- NOTE | 2022-10-25 10:57 | NUR ---
Reassessment: Patient's diet has been advanced to heart healthy and pt documented with 100% PO intake of first solid meal. Pending documentation of PO intake for today. Per physician note pt reports having three BMs since surgery. Pt possibly to discharge tomorrow per physician note. Will continue to follow and make recommendations as appropriate pending trends in PO intake with diet advancement. Recommendations: 1) Continue heart healthy diet 2) Monitor need for ONS/additional protein 3) Bowel care per physician 4) Weekly scaled weights Addendum: 10/25/22 at [address] Amended: Links added.
[2022-10-25 11:26] VITALS: BP 91/58
[2022-10-25 14:56] VITALS: BP 94/55
--- NOTE | 2022-10-25 15:00 | NUR ---
Patient ride home Jon[place]
[2022-10-25 18:46] VITALS: BP 102/69
[2022-10-26] MEDS: HYDROcodone/acetaminophen 10/325mg tab PO PRN (02:56)
--- NOTE | 2022-10-26 04:16 | NUR ---
Patient refuses to have MRSA nasal swab done.
--- NOTE | 2022-10-26 06:20 | NUR ---
Problems reprioritized. Patient report given, questions answered & plan of care reviewed with OPAL Henderson.
[2022-10-26 07:00] VITALS: BP 102/79
[2022-10-26] MEDS: piperacillin/tazo 3.375gm/50ml 50 ML IV SCH (08:00)
[2022-10-26] MEDS: K and/or MAG REPLACEMENT MC SCH (08:00)
[2022-10-26] MEDS: pantoprazole 40MG/NS 100ML BAG 100 ML IV SCH (08:00)
[2022-10-26] MEDS: carVEDilol 3.125mg tablet PO SCH (08:25)
[2022-10-26] MEDS: heparin, porcine 5000 units/ml vial SQ SCH (08:25)
[2022-10-26] MEDS: nicotine 14mg patch - 24hr TD SCH (08:25)
[2022-10-26] MEDS: spironolactone 25 MG tablet PO SCH (08:25)
[2022-10-26] MEDS: furosemide 40mg tablet PO SCH (08:26)
[2022-10-26] MEDS ORDERED: HYDR-3965 PO (09:51)
[2022-10-26] MEDS ORDERED: SPIR25TA PO (09:51)
[2022-10-26 11:00] VITALS: BP 94/64
--- NOTE | 2022-10-26 11:12 | NUR ---
PATIENT STABLE AND APPROPRIATE FOR DISCHARGE HOME. IV AND IMCU NURSE REMOVED. ALL BELONGINGS TAKEN FROM ROOM. ALL DISCHARGE INSTRUCTIONS AND EDUCATION GIVEN AND REVIEWED WITH PATIENT, ALL QUESTIONS ANSWERED. NEW RX E-SCRIPTED TO PREFERRED PHARMACY. ADDITIONAL DRESSINGS SENT HOME WITH PATIENT, PATIENT WILL HAVE [employer] DELIVERED TO HOME.
== END 2022-10-26 11:11 | disposition home or self-care (01) | DRG 710 ==
LOC: ER 14:57 → ED HOLD 17:32 → PCU 3S 20:17 → CICU 2S 21:29 → SUR 3N 10-21 15:30
PROVIDERS: ADMIT Family Medicine; ATTEND Family Medicine
PROC: 0D9670Z Drainage of Stomach with Drainage Device, Via Natural or Artificial Opening (ICD-10-PCS; 2022-10-18)
PROC: 02HV33Z Insertion of Infusion Device into Superior Vena Cava, Percutaneous Approach (ICD-10-PCS; 2022-10-18)
PROC: B548ZZA Ultrasonography of Superior Vena Cava, Guidance (ICD-10-PCS; 2022-10-18)
PROC: 03HY32Z Insertion of Monitoring Device into Upper Artery, Percutaneous Approach (ICD-10-PCS; 2022-10-18)
PROC: 0DC80ZZ Extirpation of Matter from Small Intestine, Open Approach (ICD-10-PCS; principal; 2022-10-18 21:17)
PROC: 5A1945Z Respiratory Ventilation, 24-96 Consecutive Hours (ICD-10-PCS; 2022-10-19)
PROC: 0BH17EZ Insertion of Endotracheal Airway into Trachea, Via Natural or Artificial Opening (ICD-10-PCS; 2022-10-19)
DX: A41.9 Sepsis, unspecified organism (principal); J96.00 Acute respiratory failure, unspecified whether with hypoxia or hypercapnia; R65.21 Severe sepsis with septic shock; K65.0 Generalized (acute) peritonitis; K56.691 Other complete intestinal obstruction; K65.9 Peritonitis, unspecified; I31.39 Other pericardial effusion (noninflammatory); T18.3XXA Foreign body in small intestine, initial encounter; I50.23 Acute on chronic systolic (congestive) heart failure; I42.7 Cardiomyopathy due to drug and external agent; F15.10 Other stimulant abuse, uncomplicated; X58.XXXA Exposure to other specified factors, initial encounter; I11.0 Hypertensive heart disease with heart failure; F17.210 Nicotine dependence, cigarettes, uncomplicated; I25.5 Ischemic cardiomyopathy; K82.8 Other specified diseases of gallbladder; E66.01 Morbid (severe) obesity due to excess calories; E86.0 Dehydration; N17.9 Acute kidney failure, unspecified; Z79.899 Other long term (current) drug therapy; Z68.41 Body mass index [BMI] 40.0-44.9, adult; Y93.89 Activity, other specified; Y92.89 Other specified places as the place of occurrence of the external cause; Y99.8 Other external cause status
CPT/HCPCS: 36415; 36600; 71045; 74176; 80053; 80305; 81001; 82803; 82948; 83605; 83690; 83735; 83880; 84100; 84132; 84145; 84478; 85007; 85018; 85025; 87015; 87040; 87070; 87075; 93005; 93306; 94002; 94003; 94760; 96365; 96375; 97116; 97161; 97530; 99291; A4333; A4615; A4618; A6212; A6213; A6253; A6258; A6407; A6449; A7000; C1751; C1758; C9113; G0378; J1170; J1644; J2250; J2270; J2405; J2543; J2704; J3010; J3490; J7030; J7040; J7120; P9045; P9047